=== PATIENT | female | born 1995 | race Caucasian/White ===

== ENCOUNTER 2018-12-11 11:35 | Emergency (ER) | payer OTHER ==
--- NOTE | 2018-12-11 12:03 | EDPHY ---
H & P Stated Complaint: R lower abd/pelvic pain since last night Time Seen by Provider: 12/11/18 12:02 HPI/ROS: CHIEF COMPLAINT: Lower abdominal pain HISTORY OF PRESENT ILLNESS: This is a healthy 23-year-old female with right lower quadrant pain. This began last night and kept her awake in the early hours of the morning. Pain is a dull aching sensation. She has had nausea but no vomiting. She has not been aware of fever. No diarrhea. She denies dysuria or urinary urgency. She does think she has mild constipation, last bowel movement was last night. She is sexually active with her last menstrual period ending a week ago. She has an IUD in place. She has not had vaginal discharge. No history of STD. She does comment that she had some right lower abdominal pain with sex 3 nights ago. She has never been . REVIEW OF SYSTEMS: A ten system review of systems was performed and is negative with the exception of the items mentioned in the HPI. Past medical history: Negative Past surgical history: Negative Social history: She works in [employer]. No tobacco use. General Appearance: Alert. Vital signs reviewed. Eyes: Pupils equal and round, no conjunctival injection, no discharge. Anicteric. ENT, Mouth: Mucous membranes are moist, no oropharyngeal erythema or edema. Neck: No lymphadenopathy, supple. Respiratory: Lungs are clear to auscultation; no wheezes, rales, or rhonchi. Cardiovascular: Regular rate and rhythm; no murmur, rub, or gallop. Gastrointestinal: Abdomen is soft with tenderness in right lower quadrant, no guarding or rebound , no masses or organomegaly, bowel sounds normal. Skin: Warm and dry, no rashes on exposed skin, normal color. Back: Nontender to palpation over the thoracolumbar spine. No CVAT. Extremities: No lower extremity edema, no calf tenderness or swelling. Neurological: Alert and oriented. Moving all four extremities easily and equally. Psychiatric: Normal affect. - Personal History LMP (Females 10-55): 8-14 Days Ago - Medical/Surgical History Hx Asthma: No Hx Chronic Respiratory Disease: No Hx Diabetes: No Hx Cardiac Disease: No Hx Renal Disease: No Hx Cirrhosis: No Hx Alcoholism: No Hx HIV/AIDS: No Hx Splenectomy or Spleen Trauma: No Other PMH: denies - Social History Smoking Status: Never smoked Constitutional: Initial Vital Signs Temperature (C) 37.0 C 12/11/18 11:46 Heart Rate 78 12/11/18 11:46 Respiratory Rate 18 12/11/18 11:46 Blood Pressure 130/74 H 12/11/18 11:46 O2 Sat (%) 97 12/11/18 11:46 O2 Delivery Mode Room Air Allergies/Adverse Reactions: No Known Allergies Allergy (Unverified 12/11/18 11:45) Home Medications: Medication Instructions Recorded NK [No Known Home Meds] 12/11/18 Medical Decision Making ED Course/Re-evaluation: RLQ pain in healthy female. CBC, BMP, UA, test all negative/normal. She did not want any pain medication. Pelvic ultrasound performed to assess ovaries and abdominal ultrasound to assess appendix. Ovaries normal. Small uterine AVM--patient informed and given referral to assistant at surgery. Possible abnormal appendix, CT recommended. Ab/pelvic CT shows normal appendix. Constipation. All studies show IUD in good position. We discussed constipation as the etiology of her pain and reviewed symptomatic treatments. She is reassured that her appendix looks normal. However, danger signs that should prompt immediate re-evaluation were reviewed. Differential Diagnosis: Abdominal pain including but not limited to appendicitis, ovarian cyst, PID, ectopic , pyelonephritis, UTI, cholecystitis, IUD dislodged, constipation. - Data Points Laboratory Results: Laboratory Results 12/11/18 12:18 12/11/18 12:18 Departure - Departure Disposition: Home, Routine, Self-Care Clinical Impression: Abdominal pain Qualifiers: Abdominal location: right lower quadrant Qualified Code(s): R10.31 - Right lower quadrant pain Constipation Qualifiers: Constipation type: unspecified constipation type Qualified Code(s): K59.00 - Constipation, unspecified Condition: Good Instructions: Constipation (ED) Additional Instructions: I am referring you to Dr. Cabral for primary care as needed. I am referring you to Dr. Luna, assistant coach. 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 As we discussed, this is nothing few to worry about right now. I recommend trying MiraLax for your constipation. Referrals: Isabella Cabral MD [Medical Doctor] - As per Instructions Laura Luna DO [Doctor of Osteopathy] - As per Instructions
[2018-12-11 12:44] LABS: PLATELET COUNT 237 10^3/uL (150-400)
[2018-12-11] MEDS ORDERED: IOPAMIDOL (ISOVUE-300) 100 ML BTL ONE (14:21)
[2018-12-11 15:14] VITALS: BP 108/67
== END 2018-12-11 15:14 | disposition home or self-care (01) ==
DX: R10.31 Right lower quadrant pain (principal); K59.00 Constipation, unspecified
CPT/HCPCS: Q9967